=== PATIENT | female | born 1990 | race Caucasian/White ===

== ENCOUNTER 2018-05-22 16:56 | Emergency (ER) | payer BC ==
[~2018-05-22] VITALS: Ht 165.1 cm; Wt 55.8 kg
[2018-05-22 17:02] VITALS: Ht 165.1 cm; Wt 55.8 kg
[2018-05-22 17:37] LABS: PLATELET COUNT 345 x10^3mcL (130-400)
[2018-05-22 18:24] LABS: UA SPECIFIC GRAVITY >=1.030 (1.005-1.035); microscopic required? YES; urine erythrocyte 3+ (NEGATIVE)
[2018-05-22 18:59] VITALS: BP 103/56
== END 2018-05-22 18:59 | disposition home or self-care (01) ==
LOC: ED 16:56
PROVIDERS: Emergency Medicine
DX: N93.9 Abnormal uterine and vaginal bleeding, unspecified (principal)
CPT/HCPCS: 36415

== ENCOUNTER 2018-09-17 01:48 | Emergency (ER) | payer BC ==
[~2018-09-17] VITALS: Ht 157.5 cm; Wt 59.0 kg
[2018-09-17 01:54] VITALS: Ht 157.5 cm; Wt 59.0 kg
[2018-09-17 03:27] VITALS: BP 105/73
== END 2018-09-17 03:27 | disposition home or self-care (01) ==
LOC: ED 01:48
DX: F41.9 Anxiety disorder, unspecified (principal); R07.89 Other chest pain; R06.02 Shortness of breath; R42 Dizziness and giddiness; R20.0 Anesthesia of skin